=== PATIENT | female | born 1965 | race Caucasian/White ===

== ENCOUNTER 2016-05-19 07:24 | Observation (INO) | payer BC ==
[~2016-05-19] VITALS: Ht 172.7 cm; Wt 64.0 kg
[2016-05-19] MEDS ORDERED: LACTATED RINGER'S 1000 ML INJ 1,000 ML ONE (08:34)
[2016-05-19] MEDS ORDERED: ACETAMINOPHEN 1000 MG/100 ML VIAL IV ONE (08:34)
[2016-05-19] MEDS ORDERED: ceFAZolin INJ 1,000 MG VIAL ONE ×2 (08:34→11:08)
[2016-05-19] MEDS ORDERED: BUPIVACAINE LIPOSOME PF 1.3% 20 ML VIAL ONE (11:08)
[2016-05-19] MEDS ORDERED: ISOSULFAN BLUE 50 MG/5 ML VIAL SQ ONE (11:08)
[2016-05-19] MEDS ORDERED: SODIUM CHLORIDE 0.9% 20 ML VIAL ONE (11:08)
[2016-05-19] MEDS ORDERED: LIDOCAINE 1%/EPINEPHrine 1:100,000 SOLN 20 ML VIAL ONE (11:08)
[2016-05-19] MEDS ORDERED: BUPIVACAINE/EPINEPHRINE 0.25% PF 30 ML VIAL ONE ×3 (11:08→12:07)
[2016-05-19] MEDS ORDERED: GENTAMICIN SULFATE 80 MG/2 ML VIAL ONE (11:08)
[2016-05-19] MEDS ORDERED: BACITRACIN IM FOR SOLN 50,000 UNIT VIAL ONE (11:08)
[2016-05-19] MEDS ORDERED: MIDAZOLAM HCL 2 MG/2 ML VIAL ONE (12:03)
[2016-05-19] MEDS ORDERED: MORPHINE SULFATE 4 MG/ML INJ ONE ×2 (15:28→16:03)
[2016-05-19] MEDS ORDERED: ONDANSETRON HCL 4 MG/2 ML VIAL IV PUSH ONE (16:08)
[2016-05-19] MEDS ORDERED: PROPOFOL 200 MG/20 ML AMP IV ONE (16:08)
[2016-05-19] MEDS ORDERED: MEPERIDINE HCL 25 MG/ML VIAL ONE (16:30)
--- NOTE | 2016-05-19 16:38 | TN ---
cc: RIGOBERTO COOK M.D. DATE OF SURGERY: 05/19/2016 PREOPERATIVE DIAGNOSIS: History of right breast ductal carcinoma in situ. POSTOPERATIVE DIAGNOSIS History of right breast ductal carcinoma in situ. PROCEDURE: 1. Left simple mastectomy. 2. Right breast construction, utilizing a direct implant style 410 MX volume 410, serial number [id number] and a 6 x 16 Allomax. 3. Left breast reconstruction utilizing direct implant style 410 MX volume 370 cc, serial number [id number] and 6 x 16 Allomax as well. SURGEON Rigoberto Cook MD FACS ANESTHESIA LMA general. The breast block was done utilizing a total of 60 cc of 1% lidocaine and epinephrine mixed with 0.25% Marcaine at 2:1 ratio and a total of 40 cc of Exparel 20 per breast, on a combination of 20 cc of Exparel mixed with 20 cc injectable, properly injected equally per breast, 20 cc. DRAINS: Total of four, two drains per side. One 7 mm and one 10 mm ATA per side. COMPLICATIONS None. SPECIMENS: Frozen section of the retro nipple area read as negative. PROCEDURE IN DETAIL: She was properly consented, marked properly, anesthetized. The skin was sterilized with Betadine solution and sterile draping applied. Breast block was applied throughout its 7-8 cm inframammary incision. The breast parenchyma was dissected and following in anatomical areas. After the second and third intercostal space parasternal area, anterior axillary line 6-7 intercostal space. Preserving the pectoris major fascia. This was removed in its totality with a short superior long lateral suture. At this point separation of the elevation of the pectoris major muscle was carried out, preserving some of the inferomedial fibers. Introduction of this style 410 MX breast implant was carried out reinforced with the Allomax anchoring point with 2-0 Monocryl suture. Before the placement of the implant the two ATA drains were brought out and secured in place through a separate stab wound in the retro pectoral plane and the supra pectoral plane. As we closed the wound in multiple layers utilizing 2-0 Monocryl suture in the dermis and Subcu as well as, Primapore was applied to the area. Now attention was directed to the right breast where Dr. Diego Jimenez had preformed a right therapeutic mastectomy and axillary sampling and please for that procedure repaired, refer to his dictation. RECREATION: After assuring meticulous hemostasis, re-creation of anterior axillary line and inframammary fold were properly carried out. As purely addressed the elevation of the pectoris major muscle was carried out. Due to the significant weakness we had to apply and reinforce the lower poles with the Allomax 6 x 16 as previously described. The implant was introduced. This one was a style 410 MX volume 410 cc to compensate the more aggressive lost of tissue. Before that the drains were brought out secured in place and wounds were closed utilizing 2-0 Monocryl suture, dermis and Subcu. A layer of Prineo Dermabond was applied in the skin and thereafter the area was properly covered with absorbent dressings. Overall good viability of tissue was noted of the case. The patient was awakened, extubated in the upper room transferred back to postanesthesia care unit in stable condition. No complications appreciated and the patient tolerated the procedure fairly well. MD LUCY Gibbs/blayne /3:11 PM /4:04 PM [place]
[2016-05-19] MEDS ORDERED: ACETAMINOPHEN/HYDROcodone 325 MG/5 MG TAB ONE (16:43)
[2016-05-19] MEDS ORDERED: PROMETHAZINE INJ 25 MG/ML VIAL ONE (16:57)
--- NOTE | 2016-05-19 18:28 | TN ---
cc: MARC QUIROGA M.D. DATE OF SURGERY: 05/19/2016 PREOPERATIVE DIAGNOSIS: Extensive DCIS right breast. POSTOPERATIVE DIAGNOSIS: Extensive DCIS right breast. PROCEDURE PERFORMED: 1. Right skin and nipple-sparing mastectomy. 2. Injection and excision sentinel node right axilla. SURGEON: Marc Quiroga MD. DIRECTOR DIGITAL COMMUNICATIONS: LUISA Mcclellan. ANESTHESIA: General LMA. COMPLICATIONS: None. INDICATIONS FOR THE PROCEDURE: Ms. Driscoll is a very pleasant 50-year-old female who was noted to have extensive microcalcifications in the upper outer quadrant of the right breast. She underwent percutaneous biopsy and this was found to be an extensive DCIS. She had an MRI which confirmed extensive DCIS in the upper quadrant of her right breast. She was seen and evaluated in the office. The patient was offered a lumpectomy versus mastectomy. The patient elected to have bilateral mastectomy with implant-based reconstruction by Dr. Rigoberto Cook. The risks and benefits of the procedure were discussed with her and she was agreeable. DESCRIPTION OF THE PROCEDURE IN DETAIL: The patient was identified and brought to the operating room and placed supine on the operating table. After adequate general anesthesia achieved with LMA the anterior chest and axilla were prepped and draped in the standard surgical fashion. Five mL of isosulfan blue was injected into the periareolar space of the right breast. Attention was first directed to the right axilla. The patient had previously gone to radiology where she had a sentinel node injection of the right breast. The approximate location of the sentinel node was identified. 0.25% Marcaine was injected and a transverse incision was made in the low axilla. Electrocautery dissection was used into the axilla proper. Immediately we encountered an enlarged blue node. This was grasped along with an enlarged adjacent node. These were dissected from the surrounding axillary tissue using electrocautery Bovie. The node was then excised. The node was found to have a 10-second count of 8247. This node was quite blue. There were two nodes within the specimen. They were sent to pathology labelled "sentinel lymph nodes". Once these two nodes were removed, the axilla was inspected. There was no additional blue dye noted within the axilla. There were no palpable nodes. Using the probe, there was only minimal background activity noted. No significant activity noted. At this point, I felt comfortable that we had the sentinel node which had been localized preoperatively by radiology. The wound was irrigated with normal saline solution. 0.25% Marcaine was then injected. The wound was closed in two layers using 3-0 and 4-0 Vicryl. Sterile dressings were applied. Attention was now directed to the right breast. The right breast had been marked by Dr. Rigoberto Cook using an inframammary incision. An inframammary incision was then made. A subcutaneous skin flap was then raised cephalad all the way to the clavicle using the lighted retractor and electrocautery Bovie. Dissection proceeded out laterally to the anterior axillary line and medially to the sternum. Once the breast tissue had been mobilized circumferentially, it was dissected up off the pectoralis major muscle using electrocautery Bovie. The breast was then followed up to the axillary tail into the right axilla where it was transected. The periareolar tissue was sent for frozen section and confirmed to be negative for any malignancy by pathology. A blue stitch was used to marc the approximate location of the previous nipple-areolar complex. A short stitch was placed superior and a long stitch was placed lateral. The wound was then copiously irrigated with normal saline solution. The patient was then left in the care of Dr. Rigoberto Cook who was going to perform an implant-based reconstruction. Please see Dr. Cook's operative note for the details of the left mastectomy and the bilateral implant reconstruction. Please note that the DRAFTING CLERK/accounting assistant was medically necessary due to her surgical knowledge and expertise. She also was necessary as she is well-versed in my surgical technique. She was present and scrubbed for the entirety of the procedure. MD DESTINY Pagan/OBI /6:05 PM /6:16 PM
[2016-05-19 21:15] VITALS: BP 151/85; PULSE 78; RESP 16; TEMP 97.1; O2SAT 96
[2016-05-19] MEDS ORDERED: ACETAMINOPHEN/HYDROcodone 325 MG/5 MG TAB PO PRN (22:00)
[2016-05-19] MEDS ORDERED: KETOROLAC TROMETHAMINE 10 MG TAB PO PRN (22:00)
[2016-05-19] MEDS: DEXT 5%-NACL 0.45% 1000 ML INJ 1,000 ML IV SCH (22:18)
[2016-05-19] MEDS: ceFAZolin INJ 500 MG in SODIUM CHLORIDE 0.9% INJ 100 ML IV SCH (22:18)
[2016-05-20 00:43] VITALS: BP 121/71; PULSE 69; RESP 17; TEMP 98.5; O2SAT 97
[2016-05-20] MEDS: ACETAMINOPHEN/HYDROcodone 325 MG/5 MG TAB PO PRN ×2 (03:38→09:59)
[2016-05-20] MEDS: DEXT 5%-NACL 0.45% 1000 ML INJ 1,000 ML IV SCH (03:38)
[2016-05-20] MEDS ORDERED: ZOMI5TAB5 PO (03:46)
[2016-05-20] MEDS ORDERED: ALPR.5 PO (03:47)
[2016-05-20] MEDS ORDERED: FLUT1SPR5 EACH NARE (03:49)
[2016-05-20 04:00] VITALS: BP 115/72; PULSE 68; RESP 16; TEMP 97.3; O2SAT 97
[2016-05-20] MEDS: ceFAZolin INJ 500 MG in SODIUM CHLORIDE 0.9% INJ 100 ML IV SCH (05:25)
[2016-05-20 08:00] VITALS: BP 121/71; PULSE 74; RESP 16; TEMP 97; O2SAT 95
--- NOTE | 2016-05-20 09:22 | HHI.DS ---
Discharge Summary Admission Date May 19, 2016 at 20:45 Discharge Date: May 20, 2016 Admitting Diagnosis Postop B mastectomy with reconstruction Procedures at [facility] see above Brief History 50 year old with breast cancer, had B mastectomy with reconstruction. Somnolent postop, admitted for observation overnight. PE at Discharge B dressings dry and intact. Drains with small amount dark bloody to serosanguinous drainage. Hospital Course Admitted overnight, more awake and clear headed. Wants to go home. Two friends at bedside to help transport her to [facility]. Pt Condition on Discharge: Good Discharge Disposition: Discharge Home Discharge Instructions DIET: Follow Instructions for: As Tolerated, No Restrictions Activities you can perform: See Additionl Instruction Activities to Avoid: Strenuous Activity, Driving Other Activity Instructions: sponge bathe, use upper extremities for basic self care, avoid frozen shoulder. Leoncio Pantoja MD May 20, 2016 09:22
== END 2016-05-20 14:45 | disposition home or self-care (01) ==
LOC: ESDC 07:24 → N06B 20:45
PROVIDERS: ADMIT Plastic Surgery; ATTEND Plastic Surgery
DX: D05.11 Intraductal carcinoma in situ of right breast (principal)
CPT/HCPCS: 00400; 00402; 01610; 15777; 19304; 19340; 38525; 38792; 88305; 88307; 88331; C1789; C9290; G0378; J0131; J0690; J1580; J2175; J2250; J2270; J2405; J2550; J3010; J7120; Q4100; Q9968; 88361